=== PATIENT | female | born 1950 | race Caucasian/White ===

== ENCOUNTER → 2016-11-26 | Outpatient (CLI) | payer OTHER ==
[~2016-11-26] MED LIST: ALPRAZOLAM PO; ATENOLOL PO; AZITHROMYCIN250 MG PO; BYSTOLIC PO; CELEXA PO; COUMADIN PO; LEVAQUIN PO; LEXAPRO; LODINE; LORTAB 7.5-5001 TAB PO; NORCO 5/325 TAB1 TAB PO; TOPROL XL; ZOLOFT PO
--- NOTE | ~2016-11-26 | MY29 ---
[facility] A Service of [facility] RADIOLOGY TEXT RESULTS PATIENT: KEE OSMAN LOCATION: [facility] : 54 UNIT #: [id number] AGE: [address]: Samuel Velez MD SEX: F ORDER DR: [id number] [facility] [address] [place], [place] [address] [id number] O MR#: [id number] Acc #: [id number] NAME: KEE OSMAN : 1950 SEX: F STUDY DATE/TIME: 11/26/2016 11:04 UNIT: [facility] ROOM: STUDY DESCRIPTION: MY AMBER SCREENING W/ CAD BILAT Attending Physician: Samuel Velez Jr., M.D. Referring Physician: Samuel Velez Jr., M.D. Ordering Physician: Samuel Velez Jr., M.D. Primary Care Physician: Samuel Velez Jr., M.D. MEDICAL IMAGING REPORT This report is preliminary unless electronic signature is present EXAM Digital screening mammogram, 11/26/2016; [facility]. HISTORY 66-year-old woman, no risk elevation. Annual screen. COMPARISON 11/05/2006, 07/09/2012. FINDINGS Digital imaging of each breast was completed utilizing a two-view examination of each breast in craniocaudal and mediolateral-oblique projections. Review and interpretation of digital mammograms include a second review in conjunction with FDA-approved CAD device. There is a normal parenchymal presentation bilaterally consistent with the patient's age. There are no breast masses imaged and no parenchymal asymmetry is visualized. There are no suspicious microcalcifications and I see no focal architectural disturbance. IMPRESSION Negative screening digital mammogram. One-year followup recommended. Patients over the age of 40 are entered into a reminder system with target due date for the next mammogram. A result letter will also be sent to the patient. BIRADS: 1 Negative. ADDENDUM Breast parenchyma is fatty replaced. Dictated by... [facility] A Service [facility] RADIOLOGY TEXT RESULTS PATIENT: KEE OSMAN LOCATION: [facility] : 54 UNIT #: [id number] AGE: [address]: Samuel Velez MD SEX: F ORDER DR: Randall Giang M.D. THIS IS AN ELECTRONICALLY VERIFIED REPORT Randall Giang M.D. at 11/27/2016 7:13 AM ELY/samantha TD: 11/26/2016 17:36 JOB #: [id number] MEDICAL IMAGING REPORT Page 1 of 1 COPY
== END | disposition home or self-care (01) ==
LOC: CWCC 10:44
DX: Z12.31 Encounter for screening mammogram for malignant neoplasm of breast (principal); R92.8 Other abnormal and inconclusive findings on diagnostic imaging of breast
CPT/HCPCS: G0202